=== PATIENT | male | born 1995 | race Caucasian/White ===

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

== ENCOUNTER 2020-07-26 03:36 | Emergency (ER) | payer SELFPAY ==
[~2020-07-26 03:36] MED LIST changes: +BENADRYL ALLERG25 M5 PO; +DELTASONE20 M1 PO
== END 2020-07-26 04:47 | disposition home or self-care (01) ==
LOC: ED 03:36
DX: S51.812A Laceration without foreign body of left forearm, initial encounter (principal); W26.0XXA Contact with knife, initial encounter; Y93.89 Activity, other specified; Y92.89 Other specified places as the place of occurrence of the external cause; Y99.8 Other external cause status